=== PATIENT | female | born 1995 | race Two or more races ===

== ENCOUNTER 2018-06-30 06:42 | Emergency (ER) | payer MEDICAID ==
[~2018-06-30] VITALS: Ht 180.3 cm; Wt 73.9 kg
[2018-06-30 07:20] VITALS: BP 111/58
[2018-06-30 07:28] LABS: Urine Bacteria NONE SEEN /hpf (None Seen); Urine Blood Negative /uL (Negative); Urine Mucus FEW (None Seen); Urine Specific Gravity 1.022 (1.001-1.035); Urine WBC 2 /hpf (0 - 5)
[2018-06-30] MEDS: cefTRIAXone SOD 1,000 MG VL IM ONE (07:56)
== END 2018-06-30 08:17 | disposition home or self-care (01) ==
LOC: ER 06:42
DX: J03.90 Acute tonsillitis, unspecified (principal); M54.2 Cervicalgia
CPT/HCPCS: 81001; 96372

== ENCOUNTER 2019-05-14 01:16 | Emergency (ER) | payer MEDICAID ==
[~2019-05-14] VITALS: Ht 175.3 cm; Wt 81.6 kg
[2019-05-14 01:52] LABS: Basophils # (auto) 0 uL; Basophils % (auto) 0.4 % (0.0-2.0); Eosinophils # (auto) 0 uL; Eosinophils % (auto) 0.4 % (0.0-7.0); Hematocrit 42.9 % (36.0-46.0); Hemoglobin 14.4 g/dL (12.2-16.2); Lymphocytes # (auto) 3.4 uL; Lymphocytes % (auto) 32.3 % (10.0-50.0); Mean Corpuscular Hemoglobin 29.9 pg (28.0-32.0); Mean Corpuscular Hgb Conc. 33.5 g/dL (32.0-36.0); Mean Corpuscular Volume 89.3 fL (80.0-100.0); Monocytes % (auto) 9.6 % (0.0-12.0); Neutrophils % (auto) 57.3 % (37.0-80.0); Platelet Count (auto) 192 10^3/uL (140-450); Red Blood Cells 4.81 10^6/uL (4.0-5.20); Red Cell Distribution Width 13.5 % (11.8-14.3); White Blood Cell 10.4 10^3/uL (4.4-10.8)
[2019-05-14 02:13] LABS: Albumin 4.2 g/dL (3.4-5.0); BUN/Creatinine Ratio 15.1; Calcium 8.5 mg/dL (8.5-10.1); Magnesium 2.3 mg/dL (1.6-2.6); Potassium 3.3 mmol/L (3.5-5.1)
[2019-05-14 02:15] LABS: Bilirubin, Total 0.2 mg/dL (0.2-1.0); Total Protein 7.8 g/dL (6.4-8.2)
[2019-05-14 02:24] LABS: Acetaminophen < 2.0 ug/mL (10-30)
[2019-05-14] MEDS ORDERED: SODIUM CHLORIDE 0.9% 1,000 ML IV ONE (03:00)
[2019-05-14] MEDS ORDERED: THIAMINE 100mg/ml INJ (200mg/2ml VIAL) IV ONE (03:15)
[2019-05-14] MEDS ORDERED: LORazepam 2MG/ML-1ML VIAL IV ONE (03:15)
[2019-05-14] MEDS ORDERED: MVI in SODIUM CHLORIDE 0.9% 1,010 ML ONE (03:18)
[2019-05-14 05:00] VITALS: BP 115/60
[2019-05-14] MEDS ORDERED: ONDANSETRON HCL 4 MG/2 ML VIAL ONE (05:10)
[2019-05-14] MEDS ORDERED: ONDANSETRON HCL 4 MG/2 ML VIAL IV ONE (05:15)
[2019-05-14] MEDS ORDERED: FOLIC ACID 1 MG, MULTIPLE VITAMIN 10 ML, MAGNESIUM SULF SDV 50% 8 MEQ, THIAMINE INJ 100... INJ SCH ×5 (12:00)
== END 2019-05-14 05:47 | disposition home or self-care (01) ==
LOC: ER 01:18
DX: G92 Toxic encephalopathy (principal); F10.129 Alcohol abuse with intoxication, unspecified; F41.9 Anxiety disorder, unspecified; R11.2 Nausea with vomiting, unspecified
CPT/HCPCS: 36415; 80053; 80320; 80329; 83735; 85025; 96361; 96374; 96375; 99284; J2405; J3411; J3475

== ENCOUNTER 2023-07-30 21:33 | Emergency (ER) | payer SELFPAY ==
[~2023-07-30] VITALS: Ht 180.3 cm; Wt 100.2 kg
[2023-07-31 00:23] VITALS: BP 104/63; PULSE 82; RESP 17; TEMP 98.2; O2SAT 99
[2023-07-31] MEDS ORDERED: HYDR-4902 PO (00:48)
[2023-07-31] MEDS ORDERED: IBUP-1455 PO (00:48)
[2023-07-31] MEDS: IBUPROFEN 800 MG TAB PO ONE (01:14)
== END 2023-07-31 01:23 | disposition home or self-care (01) ==
LOC: ER 21:33
DX: S82.62XA Displaced fracture of lateral malleolus of left fibula, initial encounter for closed fracture (principal); X50.1XXA Overexertion from prolonged static or awkward postures, initial encounter; Y93.01 Activity, walking, marching and hiking; Y92.832 Beach as the place of occurrence of the external cause; Y99.8 Other external cause status
CPT/HCPCS: 29515; 73610

== ENCOUNTER 2023-08-16 04:42 | Inpatient (IN) | payer OTHER ==
[~2023-08-16] VITALS: Ht 180.3 cm; Wt 106.6 kg
[~2023-08-16 04:42] MED LIST: HYDR-4902 PO; IBUP-1455 PO
[2023-08-16 05:45] VITALS: PULSE 82; RESP 13; O2SAT 99
[2023-08-16] MEDS: MORPHINE SULFATE 4 MG/ML SYR/VIAL IV ONE (06:21)
[2023-08-16] MEDS: SODIUM CHLORIDE 0.9% 1,000 ML IVB ONE (06:21)
[2023-08-16] MEDS: PROCHLORPERAZINE EDISYLATE 5 MG/ML 2ML VIAL IV ONE (06:22)
[2023-08-16] MEDS: PANTOPRAZOLE 40 MG/10 ML VIAL INJ IV ONE (06:22)
[2023-08-16 06:43] LABS: Alanine Aminotransferase 18 U/L (7-40); Albumin 3.9 g/dL (3.2-4.8); Alkaline Phosphatase 68 U/L (46-116); Anion Gap 6 (5-15); Aspartate Aminotransferase 12 U/L (13-40); BUN/Creatinine Ratio 20.6 (10.0-20.0); Bilirubin, Total 0.3 mg/dL (0.2-1.0); Blood Urea Nitrogen 13 mg/dL (9-23); Calcium 9.1 mg/dL (8.7-10.4); Carbon Dioxide 24 mmol/L (20-30); Chloride 108 mmol/L (98-107); Glucose 112 mg/dL (74-106); Lipase 36 U/L (12-53); Potassium 3.8 mmol/L (3.5-5.1); Sodium 138 mmol/L (136-145); Total Protein 6.3 g/dL (5.7-8.2)
[2023-08-16 07:00] LABS: Basophils # (auto) 0 10 ^3/uL (0-0.2); Basophils % (auto) 0.5 % (0.0-2.0); Eosinophils # (auto) 0 10 ^3/uL (0-0.8); Eosinophils % (auto) 0.5 % (0.0-7.0); Hematocrit 40.8 % (36.0-46.0); Hemoglobin 13.6 g/dL (12.2-16.2); Lymphocytes # (auto) 2.2 10 ^3/uL (0.4-5.4); Lymphocytes % (auto) 24.2 % (10.0-50.0); Mean Corpuscular Hemoglobin 28.9 pg (28.0-32.0); Mean Corpuscular Hgb Conc. 33.3 g/dL (32.0-36.0); Mean Corpuscular Volume 86.7 fL (80.0-100.0); Monocytes # (auto) 0.9 10 ^3/uL (0-1.3); Monocytes % (auto) 9.5 % (0.0-12.0); Neutrophils % (auto) 65.3 % (37.0-80.0); Nucleated Red Blood Cells % 0.1 %; Red Blood Cells 4.71 10^6/uL (4.0-5.20); Red Cell Distribution Width 13.8 % (11.8-14.3); White Blood Cell 9.2 10^3/uL (4.4-10.8)
[2023-08-16 08:06] VITALS: PULSE 80; RESP 18; O2SAT 98
[2023-08-16 08:07] LABS: Urine Amorphous Crystal FEW /hpf (None Seen); Urine Bacteria MOD /hpf (None Seen); Urine Blood TRACE /uL (Negative); Urine Clarity Turbid (Clear); Urine Color Light-Yellow (Yellow); Urine Mucus FEW (None Seen); Urine Protein, UAD Negative (Negative); Urine Specific Gravity 1.017 (1.001-1.035); Urine Urobilinogen Normal (Negative); Urine WBC 5 /hpf (0 - 5)
[2023-08-16 08:12] LABS: Amphetamine Screen, Urine Neg (NEGATIVE); Barbiturate Scree,Urine Neg (NEGATIVE); Benzodiazephine Screen, Urine Neg (NEGATIVE); Cannabinoid Screen, Urine Neg (NEGATIVE); Cocaine Screen, Urine Neg (NEGATIVE); Opiate Scree,Urine Neg (NEGATIVE); Phencyclidine Screen, Urine Neg (NEGATIVE)
[2023-08-16] MEDS: KETOROLAC TROMETH 30 MG/ML 1ML VIAL IV ONE (09:00)
[2023-08-16] MEDS: SODIUM CHLORIDE 0.9% 1,000 ML IV SCH ×2 (09:00→16:45)
[2023-08-16] MEDS ORDERED: MORPHINE SULFATE INJ 2 MG/ml SYRG IV PRN (09:00)
[2023-08-16] MEDS: SODIUM CHLORIDE 0.9% 1,000 ML IV ONE (09:21)
[2023-08-16 09:31] LABS: INR 0.95 (0.9-1.15); Prothrombin Time 10.1 sec (9.3-11.8)
[2023-08-16] MEDS: ONDANSETRON HCL 4 MG/2 ML VIAL IV PRN (09:32)
[2023-08-16 09:47] LABS: Triglycerides 78 mg/dL (< 150)
[2023-08-16 09:48] LABS: LDL Cholesterol 106 mg/dL (< 100)
[2023-08-16 09:49] LABS: Cholesterol 161 mg/dL (< 200); HDL Cholesterol 48 mg/dL (40-59)
[2023-08-16] MEDS: PANTOPRAZOLE 40 MG/10 ML VIAL INJ IV SCH (10:24)
[2023-08-16 14:39] VITALS: BP 103/56; PULSE 75; RESP 16; TEMP 98.1; O2SAT 100
[2023-08-16 15:30] VITALS: BP 110/49; PULSE 77; RESP 17; TEMP 98; O2SAT 98
[2023-08-16] MEDS: ACETAMINOPHEN/CODEINE#3 (300/30mg) TAB PO PRN (17:09)
[2023-08-16] MEDS: LACTATED RINGER'S 1,000 ML IV ONE (17:09)
[2023-08-16] MEDS: PIPERACILLIN-TAZOB 3.375GM 100 ML IV SCH (18:26)
[2023-08-16 20:00] VITALS: BP 117/66; PULSE 96; RESP 18; RESP 19; TEMP 99.2; O2SAT 99
[2023-08-16 21:00] VITALS: BP 117/66; PULSE 96; RESP 18; TEMP 99.2; O2SAT 99
[2023-08-17] VITALS (8 sets, daily range): BP systolic 101–120; BP diastolic 50–65; PULSE 67–85; RESP 16–20; TEMP 97.6–98.5; O2SAT 95–100
[2023-08-17 07:09] LABS: Basophils # (auto) 0 10 ^3/uL (0-0.2); Basophils % (auto) 0.2 % (0.0-2.0); Eosinophils # (auto) 0 10 ^3/uL (0-0.8); Eosinophils % (auto) 0.3 % (0.0-7.0); Hemoglobin 13.1 g/dL (12.2-16.2); Lymphocytes # (auto) 2.3 10 ^3/uL (0.4-5.4); Lymphocytes % (auto) 19.7 % (10.0-50.0); Mean Corpuscular Hemoglobin 29.3 pg (28.0-32.0); Mean Corpuscular Hgb Conc. 33.7 g/dL (32.0-36.0); Mean Corpuscular Volume 87.1 fL (80.0-100.0); Monocytes # (auto) 1.2 10 ^3/uL (0-1.3); Monocytes % (auto) 10.1 % (0.0-12.0); Neutrophils # (auto) 8.3 10 ^3/uL (1.6-8.6); Neutrophils % (auto) 69.7 % (37.0-80.0); Red Blood Cells 4.48 10^6/uL (4.0-5.20); Red Cell Distribution Width 13.7 % (11.8-14.3); White Blood Cell 11.8 10^3/uL (4.4-10.8)
[2023-08-17 07:28] LABS: Alanine Aminotransferase 12 U/L (7-40); Alkaline Phosphatase 52 U/L (46-116); Anion Gap 6 (5-15); Calcium 8.5 mg/dL (8.5-10.1); Carbon Dioxide 25 mmol/L (20-30); Chloride 108 mmol/L (98-107); Glucose 110 mg/dL (74-106); Potassium 3.1 mmol/L (3.5-5.1); Sodium 139 mmol/L (136-145)
[2023-08-17 07:29] LABS: Albumin 3.6 g/dL (3.2-4.8); Aspartate Aminotransferase 11 U/L (13-40); BUN/Creatinine Ratio 8.2 (10.0-20.0); Bilirubin, Total 0.8 mg/dL (0.2-1.0); Blood Urea Nitrogen < 5 mg/dL (9-23); Total Protein 5.8 g/dL (5.7-8.2)
[2023-08-17] MEDS: LIDOCAINE W/ EPINEPHRINE 1% 20ML VIAL ONE (08:17)
[2023-08-17] MEDS ORDERED: fentaNYL CITRATE 100 MCG/2 ML VL ONE (08:46)
[2023-08-17] MEDS ORDERED: MEPERIDINE HCL (50 MG/ML) 1 ML VIAL ONE (08:46)
[2023-08-17] MEDS ORDERED: MIDAZOLAM HCL 2MG/2ML 2ml VIAL (1mg/ml) ONE (08:46)
[2023-08-17] MEDS: LIDOCAINE 2% JELLY 11ml (GLYDO) ONE (09:09)
[2023-08-17] MEDS ORDERED: ONDANSETRON HCL 4 MG/2 ML VIAL ONE (09:32)
[2023-08-17] MEDS ORDERED: DexAMETHasone SOD PHOS 10MG/1ML VIAL INJ ONE (09:32)
[2023-08-17] MEDS ORDERED: PROPOFOL 10 MG/ML 20 ML IV ONE (09:32)
[2023-08-17] MEDS ORDERED: SUGAMMADEX 200mg/2ml Vial (100MG/ML) IV ONE (09:59)
[2023-08-17] MEDS ORDERED: ePHEDrine SULFATE 50 MG/ML AMP IV PRN (10:30)
[2023-08-17] MEDS ORDERED: LABETALOL HCL 5 MG/ML 4ML SYRINGE IV PRN (10:30)
[2023-08-17] MEDS ORDERED: MIDAZOLAM HCL 2MG/2ML 2ml VIAL (1mg/ml) IV PRN (10:30)
[2023-08-17] MEDS ORDERED: KETOROLAC TROMETH 30 MG/ML 1ML VIAL IV ONE (10:30)
[2023-08-17] MEDS ORDERED: HYDROmorphone HCL 2 MG/ML VL/or syr IV PRN (10:30)
[2023-08-17] MEDS ORDERED: ONDANSETRON HCL 4 MG/2 ML VIAL IV ONE (10:30)
[2023-08-17] MEDS ORDERED: MORPHINE SULFATE 4 MG/ML SYR/VIAL IV PRN (10:30)
[2023-08-17] MEDS: POTASSIUM CHL 20 Meq TABLET PO ONE (14:40)
[2023-08-18 01:00] VITALS: BP 111/53; PULSE 63; RESP 22; TEMP 97.9; O2SAT 98
[2023-08-18 05:00] VITALS: BP 115/70; PULSE 61; RESP 22; TEMP 98.3; O2SAT 99
[2023-08-18 07:00] LABS: Basophils # (auto) 0 10 ^3/uL (0-0.2); Basophils % (auto) 0.1 % (0.0-2.0); Eosinophils # (auto) 0 10 ^3/uL (0-0.8); Hematocrit 38.7 % (36.0-46.0); Hemoglobin 12.7 g/dL (12.2-16.2); Lymphocytes # (auto) 1.5 10 ^3/uL (0.4-5.4); Lymphocytes % (auto) 10.4 % (10.0-50.0); Mean Corpuscular Hemoglobin 28.6 pg (28.0-32.0); Mean Corpuscular Hgb Conc. 32.9 g/dL (32.0-36.0); Mean Corpuscular Volume 86.8 fL (80.0-100.0); Monocytes # (auto) 1.2 10 ^3/uL (0-1.3); Monocytes % (auto) 8.5 % (0.0-12.0); Neutrophils # (auto) 11.8 10 ^3/uL (1.6-8.6); Red Blood Cells 4.46 10^6/uL (4.0-5.20); Red Cell Distribution Width 13.4 % (11.8-14.3); White Blood Cell 14.6 10^3/uL (4.4-10.8)
[2023-08-18 07:20] LABS: Alanine Aminotransferase 28 U/L (7-40); Alkaline Phosphatase 52 U/L (46-116); Anion Gap 6 (5-15); Aspartate Aminotransferase 16 U/L (13-40); Bilirubin, Total 0.7 mg/dL (0.2-1.0); Calcium 9.2 mg/dL (8.5-10.1); Carbon Dioxide 26 mmol/L (20-30); Chloride 106 mmol/L (98-107); Glucose 118 mg/dL (74-106); Potassium 3.6 mmol/L (3.5-5.1); Sodium 138 mmol/L (136-145); Total Protein 6.3 g/dL (5.7-8.2)
[2023-08-18 07:29] LABS: BUN/Creatinine Ratio 8.1 (10.0-20.0); Blood Urea Nitrogen < 5 mg/dL (9-23)
[2023-08-18] MEDS: ACETAMINOPHEN 325 MG TAB PO PRN (08:20)
[2023-08-18 08:45] VITALS: BP 108/58; PULSE 62; RESP 18; TEMP 98.4; O2SAT 99
[2023-08-18 12:45] VITALS: BP 90/58; PULSE 81; RESP 18; TEMP 98.7; O2SAT 99
[2023-08-18 16:35] VITALS: BP 96/63; PULSE 71; RESP 17; TEMP 97.8; O2SAT 99
[2023-08-18 21:00] VITALS: BP 106/52; PULSE 71; RESP 22; TEMP 97.4; O2SAT 99
[2023-08-19 01:00] VITALS: BP 106/62; PULSE 78; RESP 22; TEMP 97.5; O2SAT 98
[2023-08-19 05:00] VITALS: BP 109/60; PULSE 58; RESP 22; TEMP 98.4; O2SAT 99
[2023-08-19] MEDS: PANTOPRAZOLE 40 MG TAB PO SCH (05:49)
[2023-08-19 06:50] LABS: Basophils # (auto) 0 10 ^3/uL (0-0.2); Basophils % (auto) 0.3 % (0.0-2.0); Eosinophils # (auto) 0 10 ^3/uL (0-0.8); Eosinophils % (auto) 0.3 % (0.0-7.0); Hematocrit 36.7 % (36.0-46.0); Hemoglobin 12.5 g/dL (12.2-16.2); Lymphocytes # (auto) 3.3 10 ^3/uL (0.4-5.4); Lymphocytes % (auto) 38.2 % (10.0-50.0); Mean Corpuscular Hemoglobin 29.6 pg (28.0-32.0); Mean Corpuscular Hgb Conc. 34.1 g/dL (32.0-36.0); Monocytes # (auto) 0.8 10 ^3/uL (0-1.3); Monocytes % (auto) 9.2 % (0.0-12.0); Neutrophils # (auto) 4.5 10 ^3/uL (1.6-8.6); Nucleated Red Blood Cells % 0.1 %; Red Blood Cells 4.21 10^6/uL (4.0-5.20); Red Cell Distribution Width 13.8 % (11.8-14.3); White Blood Cell 8.8 10^3/uL (4.4-10.8)
[2023-08-19 07:00] LABS: Chloride 108 mmol/L (98-107); Potassium 3.7 mmol/L (3.5-5.1); Sodium 139 mmol/L (136-145)
[2023-08-19 07:01] LABS: Anion Gap 5 (5-15); Carbon Dioxide 26 mmol/L (20-30)
[2023-08-19 07:02] LABS: Calcium 8.6 mg/dL (8.5-10.1)
[2023-08-19 07:06] LABS: Glucose 100 mg/dL (74-106)
[2023-08-19 07:07] LABS: BUN/Creatinine Ratio 7.4 (10.0-20.0); Blood Urea Nitrogen 5 mg/dL (9-23)
[2023-08-19] MEDS ORDERED: AUG875T PO (08:27)
[2023-08-19 08:45] VITALS: BP 93/57; PULSE 62; RESP 18; TEMP 98.4; O2SAT 99
[2023-08-19] MEDS: AMOXICILLIN/CLAVUL 875 MG TAB PO SCH (10:30)
[2023-08-19 12:00] VITALS: BP 94/57; PULSE 64; RESP 18; TEMP 98.3; O2SAT 99
== END 2023-08-19 13:30 | disposition home or self-care (01) | DRG 263 ==
LOC: ER 04:42 → OVERFLOW 08:58 → EAST 13:44
PROVIDERS: ADMIT Internal Medicine; ATTEND Emergency Medicine
PROC: 0FT44ZZ Resection of Gallbladder, Percutaneous Endoscopic Approach (ICD-10-PCS; principal; 2023-08-17 09:05)
DX: K80.00 Calculus of gallbladder with acute cholecystitis without obstruction (principal); R65.10 Systemic inflammatory response syndrome (SIRS) of non-infectious origin without acute organ dysfunction; K76.0 Fatty (change of) liver, not elsewhere classified; E87.6 Hypokalemia; E78.5 Hyperlipidemia, unspecified; E66.01 Morbid (severe) obesity due to excess calories; N83.292 Other ovarian cyst, left side; F17.210 Nicotine dependence, cigarettes, uncomplicated; Z79.891 Long term (current) use of opiate analgesic; Z79.899 Other long term (current) drug therapy; Z68.32 Body mass index [BMI] 32.0-32.9, adult
CPT/HCPCS: 36415; 71045; 74177; 76705; 80048; 80053; 80061; 80307; 81001; 83036; 83690; 83735; 84443; 84702; 85025; 85610; 86850; 86900; 86901; C9113; G0378; J1100; J1885; J2250; J2405; J2543; J2704

== ENCOUNTER 2023-09-10 10:45 | Emergency (ER) | payer OTHER ==
[~2023-09-10] VITALS: Ht 180.3 cm; Wt 100.0 kg
[~2023-09-10 10:45] MED LIST changes: +AUG875T PO
[2023-09-10 11:40] VITALS: PULSE 104; RESP 18; O2SAT 99
[2023-09-10 11:44] LABS: Basophils # (auto) 0 10 ^3/uL (0-0.2); Basophils % (auto) 0.3 % (0.0-2.0); Eosinophils # (auto) 0 10 ^3/uL (0-0.8); Eosinophils % (auto) 0.3 % (0.0-7.0); Hematocrit 44.6 % (36.0-46.0); Lymphocytes # (auto) 1.2 10 ^3/uL (0.4-5.4); Lymphocytes % (auto) 17.1 % (10.0-50.0); Mean Corpuscular Hgb Conc. 33.7 g/dL (32.0-36.0); Monocytes # (auto) 1.1 10 ^3/uL (0-1.3); Monocytes % (auto) 15.1 % (0.0-12.0); Neutrophils # (auto) 4.8 10 ^3/uL (1.6-8.6); Neutrophils % (auto) 67.2 % (37.0-80.0); Nucleated Red Blood Cells % 0.2 %; Red Blood Cells 5.18 10^6/uL (4.0-5.20); Red Cell Distribution Width 13.6 % (11.8-14.3); White Blood Cell 7.2 10^3/uL (4.4-10.8)
[2023-09-10] MEDS: MORPHINE SULFATE 4 MG/ML SYR/VIAL IV ONE (11:48)
[2023-09-10] MEDS: PANTOPRAZOLE 40 MG/10 ML VIAL INJ IV ONE (11:48)
[2023-09-10] MEDS: PROCHLORPERAZINE EDISYLATE 5 MG/ML 2ML VIAL IV ONE (11:48)
[2023-09-10] MEDS: IOHEXOL 300 MG/ML 100ML BOTTLE IJ ONE (11:49)
[2023-09-10] MEDS: SODIUM CHLORIDE 0.9% 1,000 ML IVB ONE (11:49)
[2023-09-10 12:02] LABS: Alanine Aminotransferase 77 U/L (7-40); Albumin 4.4 g/dL (3.2-4.8); Alkaline Phosphatase 89 U/L (46-116); Anion Gap 8 (5-15); Aspartate Aminotransferase 94 U/L (13-40); Bilirubin, Total 0.7 mg/dL (0.2-1.0); Calcium 9.6 mg/dL (8.7-10.4); Carbon Dioxide 21 mmol/L (20-30); Chloride 107 mmol/L (98-107); Glucose 121 mg/dL (74-106); Lipase 39 U/L (12-53); Potassium 3.8 mmol/L (3.5-5.1); Sodium 136 mmol/L (136-145); Total Protein 7.2 g/dL (5.7-8.2)
[2023-09-10 12:15] LABS: BUN/Creatinine Ratio 8.1 (10.0-20.0); Blood Urea Nitrogen < 5 mg/dL (9-23)
[2023-09-10] MEDS ORDERED: PANT40TA2 PO (15:40)
[2023-09-10] MEDS ORDERED: ZOFR4T PO (15:40)
[2023-09-10 16:29] VITALS: BP 107/67; PULSE 87; RESP 18; TEMP 97.8; O2SAT 100
== END 2023-09-10 16:31 | disposition admitted as inpatient to this hospital (09) ==
LOC: ER 11:08
DX: R10.13 Epigastric pain (principal); R11.2 Nausea with vomiting, unspecified; Z90.49 Acquired absence of other specified parts of digestive tract; Z79.899 Other long term (current) drug therapy
CPT/HCPCS: 36415; 74177; 80053; 83690; 85025; 96361; 96374; 96375; 99285; C9113; J0780; J2270; J7030; Q9967

== ENCOUNTER 2023-09-10 23:36 | Inpatient (IN) | payer OTHER ==
[~2023-09-10] VITALS: Ht 180.3 cm; Wt 97.9 kg
[~2023-09-10 23:36] MED LIST changes: +PANT40TA2 PO; +ZOFR4T PO
[2023-09-10] MEDS: ONDANSETRON HCL 4 MG/2 ML VIAL ONE (23:54)
[2023-09-10] MEDS: ONDANSETRON HCL 4 MG/2 ML VIAL IM ONE (23:54)
[2023-09-11] VITALS (7 sets, daily range): BP systolic 102–123; BP diastolic 59–70; PULSE 54–98; RESP 12–18; TEMP 97.6–98.1; O2SAT 96–100
[2023-09-11 03:35] LABS: Basophils # (auto) 0 10 ^3/uL (0-0.2); Basophils % (auto) 0.2 % (0.0-2.0); Eosinophils # (auto) 0 10 ^3/uL (0-0.8); Eosinophils % (auto) 0.2 % (0.0-7.0); Hematocrit 42.8 % (36.0-46.0); Hemoglobin 14.6 g/dL (12.2-16.2); Lymphocytes # (auto) 1.1 10 ^3/uL (0.4-5.4); Lymphocytes % (auto) 16.4 % (10.0-50.0); Mean Corpuscular Hemoglobin 29.1 pg (28.0-32.0); Mean Corpuscular Hgb Conc. 34.1 g/dL (32.0-36.0); Mean Corpuscular Volume 85.3 fL (80.0-100.0); Monocytes # (auto) 0.7 10 ^3/uL (0-1.3); Monocytes % (auto) 10.6 % (0.0-12.0); Neutrophils # (auto) 4.9 10 ^3/uL (1.6-8.6); Neutrophils % (auto) 72.6 % (37.0-80.0); Nucleated Red Blood Cells % 0.2 %; Red Blood Cells 5.02 10^6/uL (4.0-5.20); Red Cell Distribution Width 13.4 % (11.8-14.3); White Blood Cell 6.8 10^3/uL (4.4-10.8)
[2023-09-11 03:54] LABS: Alanine Aminotransferase 819 U/L (7-40); Albumin 4.3 g/dL (3.2-4.8); Alkaline Phosphatase 188 U/L (46-116); Anion Gap 8 (5-15); Aspartate Aminotransferase 729 U/L (13-40); BUN/Creatinine Ratio 9.7 (10.0-20.0); Bilirubin, Total 1.9 mg/dL (0.2-1.0); Blood Urea Nitrogen 6 mg/dL (9-23); Calcium 9.7 mg/dL (8.7-10.4); Carbon Dioxide 23 mmol/L (20-30); Chloride 106 mmol/L (98-107); Glucose 116 mg/dL (74-106); Lipase 39 U/L (12-53); Sodium 137 mmol/L (136-145)
[2023-09-11] MEDS ORDERED: NITROGLYCERIN 0.4 MG SL TAB SL PRN (05:30)
[2023-09-11] MEDS ORDERED: MORPHINE SULFATE INJ 2 MG/ml SYRG IV PRN (05:30)
[2023-09-11] MEDS ORDERED: HYDROcodone-ACET 5/325MG TAB PO PRN (05:30)
[2023-09-11] MEDS ORDERED: DOCUSATE SOD 100 MG CAP PO PRN (05:30)
[2023-09-11] MEDS ORDERED: ACETAMINOPHEN 325 MG TAB PO PRN (05:30)
[2023-09-11] MEDS: PANTOPRAZOLE 40 MG/10 ML VIAL INJ IV ONE (05:49)
[2023-09-11] MEDS: MORPHINE SULFATE 4 MG/ML SYR/VIAL IV ONE (05:49)
[2023-09-11] MEDS: SODIUM CHLORIDE 0.9% 1,000 ML IV ONE (05:49)
[2023-09-11] MEDS: ONDANSETRON HCL 4 MG/2 ML VIAL IV ONE (05:49)
[2023-09-11 06:28] LABS: Urine Bacteria None Seen /hpf (None Seen)
[2023-09-11 06:43] LABS: Urine Blood 3+ /uL (Negative); Urine Clarity Turbid (Clear); Urine Color Dark-Yellow (Yellow); Urine Mucus FEW (None Seen); Urine Protein, UAD TRACE (Negative); Urine Specific Gravity 1.028 (1.001-1.035); Urine Urobilinogen 4 mg/dL (Negative); Urine WBC 6 /hpf (0 - 5)
[2023-09-11] MEDS: SODIUM CHLORIDE 0.9% 1,000 ML IV SCH (06:45)
[2023-09-11] MEDS: PANTOPRAZOLE 40 MG/10 ML VIAL INJ IV SCH (11:57)
[2023-09-11 14:09] LABS: Hepatitis B Surface Antigen Negative (Negative)
[2023-09-11] MEDS: metroNIDAZOLE 500 MG TAB PO SCH (14:09)
[2023-09-11 14:31] LABS: Hepatitis C Antibody Negative (Negative)
[2023-09-11] MEDS: MORPHINE SULFATE INJ 2 MG/ml SYRG IV PRN (16:49)
[2023-09-11] MEDS: PIPERACILLIN-TAZOB 3.375GM 100 ML IV SCH (21:44)
[2023-09-12] VITALS (8 sets, daily range): BP systolic 95–109; BP diastolic 50–66; PULSE 52–67; RESP 16–17; TEMP 98.1–98.9; O2SAT 97–100
[2023-09-12 05:41] LABS: Basophils # (auto) 0 10 ^3/uL (0-0.2); Basophils % (auto) 0.5 % (0.0-2.0); Eosinophils # (auto) 0.1 10 ^3/uL (0-0.8); Eosinophils % (auto) 1.3 % (0.0-7.0); Hematocrit 40.9 % (36.0-46.0); Hemoglobin 13.8 g/dL (12.2-16.2); Lymphocytes # (auto) 1.9 10 ^3/uL (0.4-5.4); Lymphocytes % (auto) 34.8 % (10.0-50.0); Mean Corpuscular Hemoglobin 28.8 pg (28.0-32.0); Mean Corpuscular Hgb Conc. 33.6 g/dL (32.0-36.0); Mean Corpuscular Volume 85.8 fL (80.0-100.0); Monocytes # (auto) 0.6 10 ^3/uL (0-1.3); Neutrophils # (auto) 2.8 10 ^3/uL (1.6-8.6); Neutrophils % (auto) 52.4 % (37.0-80.0); Nucleated Red Blood Cells % 0.1 %; Red Blood Cells 4.77 10^6/uL (4.0-5.20); Red Cell Distribution Width 13.7 % (11.8-14.3); White Blood Cell 5.4 10^3/uL (4.4-10.8)
[2023-09-12 06:24] LABS: Alanine Aminotransferase 581 U/L (7-40); Albumin 3.8 g/dL (3.2-4.8); Alkaline Phosphatase 183 U/L (46-116); Anion Gap 8 (5-15); Aspartate Aminotransferase 271 U/L (13-40); Carbon Dioxide 22 mmol/L (20-30); Chloride 108 mmol/L (98-107); Glucose 97 mg/dL (74-106); Potassium 3.9 mmol/L (3.5-5.1); Sodium 138 mmol/L (136-145); Total Protein 6.1 g/dL (5.7-8.2)
[2023-09-12 06:25] LABS: BUN/Creatinine Ratio 8.9 (10.0-20.0); Blood Urea Nitrogen < 5 mg/dL (9-23)
[2023-09-12] MEDS ORDERED: LACTULOSE 20Gm/30ML SOLN PO PRN (14:15)
[2023-09-12] MEDS: DOCUSATE SOD 100 MG CAP PO SCH (21:25)
[2023-09-13] VITALS (8 sets, daily range): BP systolic 103–116; BP diastolic 55–74; PULSE 50–79; RESP 15–20; TEMP 97.6–98.3; O2SAT 95–100
[2023-09-13 06:54] LABS: Alanine Aminotransferase 462 U/L (7-40); Alkaline Phosphatase 187 U/L (46-116); Anion Gap 7 (5-15); Aspartate Aminotransferase 106 U/L (13-40); Calcium 9.1 mg/dL (8.5-10.1); Carbon Dioxide 23 mmol/L (20-30); Chloride 107 mmol/L (98-107); Glucose 90 mg/dL (74-106); Potassium 4.5 mmol/L (3.5-5.1); Sodium 137 mmol/L (136-145)
[2023-09-13 06:55] LABS: Albumin 3.8 g/dL (3.2-4.8); Bilirubin, Total 1.6 mg/dL (0.2-1.0)
[2023-09-13 06:59] LABS: BUN/Creatinine Ratio 6.5 (10.0-20.0); Blood Urea Nitrogen < 5 mg/dL (9-23)
[2023-09-13] MEDS: ONDANSETRON HCL 4 MG/2 ML VIAL IV PRN (18:54)
[2023-09-14] VITALS (8 sets, daily range): BP systolic 104–120; BP diastolic 57–71; PULSE 50–62; RESP 15–19; TEMP 97.2–98.3; O2SAT 98–100
[2023-09-14 06:42] LABS: Alanine Aminotransferase 356 U/L (7-40); Albumin 3.8 g/dL (3.2-4.8); Alkaline Phosphatase 182 U/L (46-116); Anion Gap 5 (5-15); Aspartate Aminotransferase 71 U/L (13-40); Calcium 9.1 mg/dL (8.5-10.1); Carbon Dioxide 25 mmol/L (20-30); Chloride 106 mmol/L (98-107); Glucose 83 mg/dL (74-106); Potassium 3.6 mmol/L (3.5-5.1); Sodium 136 mmol/L (136-145)
[2023-09-14 06:43] LABS: Total Protein 6.3 g/dL (5.7-8.2)
[2023-09-14 06:45] LABS: BUN/Creatinine Ratio 7.4 (10.0-20.0); Blood Urea Nitrogen < 5 mg/dL (9-23)
[2023-09-14] MEDS: SODIUM CHLORIDE 0.9% 500 ML IV ONE (15:46)
[2023-09-15 01:00] VITALS: BP 101/62; PULSE 63; RESP 16; TEMP 97.1; O2SAT 99
[2023-09-15 05:00] VITALS: BP_SYST 102; BP_SYST 123; BP_DIAS 60; BP_DIAS 88; PULSE 52; PULSE 75; RESP 16; RESP 18; TEMP 97.3; TEMP 98.4; O2SAT 95; O2SAT 98
[2023-09-15 07:28] LABS: Alanine Aminotransferase 375 U/L (7-40); Albumin 3.8 g/dL (3.2-4.8); Alkaline Phosphatase 188 U/L (46-116); Anion Gap 7 (5-15); Aspartate Aminotransferase 155 U/L (13-40); Calcium 9.4 mg/dL (8.5-10.1); Carbon Dioxide 24 mmol/L (20-30); Chloride 106 mmol/L (98-107); Glucose 98 mg/dL (74-106); Potassium 3.7 mmol/L (3.5-5.1); Sodium 137 mmol/L (136-145)
[2023-09-15 07:29] LABS: Bilirubin, Total 3.7 mg/dL (0.2-1.0); Total Protein 6.4 g/dL (5.7-8.2)
[2023-09-15 07:38] LABS: BUN/Creatinine Ratio 7.2 (10.0-20.0); Blood Urea Nitrogen < 5 mg/dL (9-23)
[2023-09-15 08:00] VITALS: PULSE 56; RESP 19
[2023-09-15 09:30] VITALS: BP 102/57; PULSE 56; RESP 19; TEMP 98; O2SAT 99
[2023-09-15 13:00] VITALS: BP 108/64; PULSE 64; RESP 17; TEMP 98.3; O2SAT 99
[2023-09-15 21:00] VITALS: BP 112/65; PULSE 63; RESP 22; TEMP 98.3; O2SAT 98
[2023-09-16 01:00] VITALS: BP 109/60; PULSE 61; RESP 22; TEMP 98.2; O2SAT 97
[2023-09-16 05:00] VITALS: BP 108/63; PULSE 58; RESP 22; TEMP 97.9; O2SAT 100
[2023-09-16 09:00] VITALS: BP 99/61; PULSE 52; RESP 14; TEMP 97.7; O2SAT 95
== END 2023-09-16 09:00 | disposition short-term general hospital (02) ==
LOC: ER 23:36 → OVERFLOW 09-11 05:35 → WEST WING 09-11 10:50
PROVIDERS: ADMIT Nurse Practitioner Family; ATTEND Internal Medicine
DX: K80.50 Calculus of bile duct without cholangitis or cholecystitis without obstruction (principal); E66.9 Obesity, unspecified; K52.9 Noninfective gastroenteritis and colitis, unspecified; R79.89 Other specified abnormal findings of blood chemistry; Z90.49 Acquired absence of other specified parts of digestive tract; Z68.30 Body mass index [BMI] 30.0-30.9, adult
CPT/HCPCS: 36415; 74181; 76705; 78226; 80053; 81001; 83690; 85025; 86803; 87340; 96361; 96372; 96374; 96375; C9113; G0378; J2405; J2543

== ENCOUNTER 2023-09-17 21:50 | Inpatient (IN) | payer OTHER ==
[~2023-09-17] VITALS: Ht 180.3 cm; Wt 97.3 kg
[2023-09-17 22:29] LABS: Basophils # (auto) 0 10 ^3/uL (0-0.2); Basophils % (auto) 0.3 % (0.0-2.0); Eosinophils # (auto) 0 10 ^3/uL (0-0.8); Hematocrit 46.3 % (36.0-46.0); Hemoglobin 15.3 g/dL (12.2-16.2); Lymphocytes # (auto) 0.8 10 ^3/uL (0.4-5.4); Lymphocytes % (auto) 5.6 % (10.0-50.0); Mean Corpuscular Hemoglobin 28.5 pg (28.0-32.0); Mean Corpuscular Volume 86.3 fL (80.0-100.0); Monocytes # (auto) 0.8 10 ^3/uL (0-1.3); Monocytes % (auto) 5.5 % (0.0-12.0); Neutrophils # (auto) 12.7 10 ^3/uL (1.6-8.6); Neutrophils % (auto) 88.6 % (37.0-80.0); Red Blood Cells 5.37 10^6/uL (4.0-5.20); White Blood Cell 14.4 10^3/uL (4.4-10.8)
[2023-09-17] MEDS: KETOROLAC TROMETH 30 MG/ML 1ML VIAL IM ONE (22:38)
[2023-09-17 22:45] LABS: Alanine Aminotransferase 365 U/L (7-40); Alkaline Phosphatase 201 U/L (46-116); Anion Gap 8 (5-15); Aspartate Aminotransferase 105 U/L (13-40); BUN/Creatinine Ratio 9.9 (10.0-20.0); Blood Urea Nitrogen 7 mg/dL (9-23); Calcium 9.9 mg/dL (8.7-10.4); Carbon Dioxide 19 mmol/L (20-30); Chloride 107 mmol/L (98-107); Glucose 197 mg/dL (74-106); Potassium 4.1 mmol/L (3.5-5.1); Sodium 134 mmol/L (136-145)
[2023-09-17 22:46] LABS: Albumin 4.1 g/dL (3.2-4.8); Total Protein 7.1 g/dL (5.7-8.2)
[2023-09-17 22:53] LABS: Lipase 3446 U/L (12-53)
[2023-09-17 23:28] VITALS: PULSE 72; RESP 16
[2023-09-17] MEDS ORDERED: SODIUM CHLORIDE 0.9% 1,000 ML IV ONE (23:45)
[2023-09-18] VITALS (9 sets, daily range): BP systolic 94–115; BP diastolic 49–85; PULSE 55–80; RESP 16–18; TEMP 97.3–98.1; O2SAT 96–100
[2023-09-18] MEDS ORDERED: IBUPROFEN 600 MG TAB PO PRN
[2023-09-18] MEDS ORDERED: DEXTROSE (50%) 50ML SYRG IV PRN
[2023-09-18] MEDS ORDERED: NITROGLYCERIN 0.4 MG SL TAB SL PRN
[2023-09-18] MEDS ORDERED: MORPHINE SULFATE INJ 2 MG/ml SYRG IV PRN
[2023-09-18] MEDS: SODIUM CHLORIDE 0.9% 1,000 ML IV SCH (00:18)
[2023-09-18] MEDS: ONDANSETRON HCL 4 MG/2 ML VIAL IV ONE (00:19)
[2023-09-18] MEDS: MORPHINE SULFATE INJ 2 MG/ml SYRG IV PRN (00:19)
[2023-09-18] MEDS: cefTRIAXone 1GM/50ML D5W 50 ML IV ONE (00:20)
[2023-09-18] MEDS: MORPHINE SULFATE 4 MG/ML SYR/VIAL IV ONE (00:25)
[2023-09-18] MEDS: metroNIDAZOLE 500MG/100ML 100 ML IV SCH (02:45)
[2023-09-18] MEDS: InsuLIN REG 1unit/0.01ml Soln (100units/ml) SC SCH (05:33)
[2023-09-18] MEDS: ACCU-CHEK COMFORT CURVE STRIP VI SCH (05:34)
[2023-09-18 06:53] LABS: Basophils # (auto) 0 10 ^3/uL (0-0.2); Basophils % (auto) 0.1 % (0.0-2.0); Eosinophils # (auto) 0 10 ^3/uL (0-0.8); Eosinophils % (auto) 0.2 % (0.0-7.0); Hemoglobin 13.6 g/dL (12.2-16.2); Lymphocytes # (auto) 1.6 10 ^3/uL (0.4-5.4); Lymphocytes % (auto) 13.7 % (10.0-50.0); Mean Corpuscular Hemoglobin 28.7 pg (28.0-32.0); Mean Corpuscular Hgb Conc. 33.2 g/dL (32.0-36.0); Mean Corpuscular Volume 86.5 fL (80.0-100.0); Monocytes % (auto) 8.2 % (0.0-12.0); Neutrophils # (auto) 9.1 10 ^3/uL (1.6-8.6); Neutrophils % (auto) 77.8 % (37.0-80.0); Red Blood Cells 4.74 10^6/uL (4.0-5.20); White Blood Cell 11.6 10^3/uL (4.4-10.8)
[2023-09-18 07:32] LABS: Alanine Aminotransferase 293 U/L (7-40); Alkaline Phosphatase 173 U/L (46-116); Anion Gap 9 (5-15); BUN/Creatinine Ratio 15.4 (10.0-20.0); Blood Urea Nitrogen 8 mg/dL (9-23); Carbon Dioxide 22 mmol/L (20-30); Chloride 107 mmol/L (98-107); Glucose 87 mg/dL (74-106); Potassium 3.5 mmol/L (3.5-5.1); Sodium 138 mmol/L (136-145)
[2023-09-18 07:33] LABS: Aspartate Aminotransferase 72 U/L (13-40)
[2023-09-18 07:34] LABS: Albumin 3.6 g/dL (3.2-4.8); Bilirubin, Total 1.6 mg/dL (0.2-1.0); Total Protein 6.1 g/dL (5.7-8.2)
[2023-09-18] MEDS: PANTOPRAZOLE 40 MG/10 ML VIAL INJ IV SCH (08:56)
[2023-09-18] MEDS: HYDROcodone-ACET 5/325MG TAB PO PRN (11:16)
[2023-09-18 14:33] LABS: Amylase 1426 U/L (30-118)
[2023-09-18 14:40] LABS: Lipase 1160 U/L (12-53)
[2023-09-18] MEDS: cefTRIAXone 1GM/50ML D5W 50 ML IV SCH (20:54)
[2023-09-19] VITALS (8 sets, daily range): BP systolic 93–112; BP diastolic 56–63; PULSE 59–81; RESP 14–18; TEMP 98.2–99.2; O2SAT 97–99
[2023-09-19 06:33] LABS: Alanine Aminotransferase 234 U/L (7-40); Alkaline Phosphatase 151 U/L (46-116); Anion Gap 7 (5-15); Calcium 8.8 mg/dL (8.5-10.1); Carbon Dioxide 24 mmol/L (20-30); Chloride 107 mmol/L (98-107); Glucose 82 mg/dL (74-106); Potassium 3.4 mmol/L (3.5-5.1); Sodium 138 mmol/L (136-145)
[2023-09-19 06:34] LABS: Albumin 3.5 g/dL (3.2-4.8); Amylase 410 U/L (30-118); Aspartate Aminotransferase 59 U/L (13-40)
[2023-09-19 06:35] LABS: Bilirubin, Total 1.2 mg/dL (0.2-1.0); Total Protein 5.8 g/dL (5.7-8.2)
[2023-09-19 06:37] LABS: BUN/Creatinine Ratio 9.3 (10.0-20.0); Blood Urea Nitrogen < 5 mg/dL (9-23)
[2023-09-19 06:59] LABS: Lipase 169 U/L (12-53)
[2023-09-19] MEDS: ONDANSETRON HCL 4 MG/2 ML VIAL IV PRN (10:58)
[2023-09-20] VITALS (7 sets, daily range): BP systolic 91–110; BP diastolic 50–66; PULSE 59–89; RESP 16–18; TEMP 97.8–98.6; O2SAT 96–100
[2023-09-20 06:39] LABS: Amylase 252 U/L (30-118)
[2023-09-20 06:40] LABS: Lipase 86 U/L (12-53)
[2023-09-20] MEDS: LACTULOSE 20Gm/30ML SOLN PO PRN (16:23)
[2023-09-21 01:00] VITALS: BP 104/61; PULSE 63; RESP 18; TEMP 98; O2SAT 100
[2023-09-21 05:00] VITALS: BP 116/70; PULSE 65; RESP 18; TEMP 98; O2SAT 100
[2023-09-21 08:00] VITALS: PULSE 72; RESP 20; O2SAT 97
[2023-09-21 09:00] VITALS: BP 107/58; PULSE 72; RESP 20; TEMP 98.1; O2SAT 97
[2023-09-21 10:53] VITALS: BP 107/58; PULSE 72; RESP 20; TEMP 98.1; O2SAT 97
== END 2023-09-21 13:45 | disposition home or self-care (01) | DRG 252 ==
LOC: ER 21:50 → EDBD 21:50 → OVERFLOW 23:57 → WEST WING 09-18 01:48
PROVIDERS: ADMIT Nurse Practitioner Family; ATTEND Internal Medicine
DX: K91.89 Other postprocedural complications and disorders of digestive system (principal); K85.80 Other acute pancreatitis without necrosis or infection; R65.10 Systemic inflammatory response syndrome (SIRS) of non-infectious origin without acute organ dysfunction; R74.01 Elevation of levels of liver transaminase levels; Z90.49 Acquired absence of other specified parts of digestive tract; Y84.8 Other medical procedures as the cause of abnormal reaction of the patient, or of later complication, without mention of misadventure at the time of the procedure; Y92.89 Other specified places as the place of occurrence of the external cause
CPT/HCPCS: 36415; 71045; 71250; 74176; 80053; 82150; 82962; 83605; 83690; 85025; 96365; 96372; 96375; C9113; G0378; J1815; J1885; J2405; J3490

== ENCOUNTER 2024-05-07 03:18 | Emergency (ER) | payer MEDICAID, OTHER ==
[~2024-05-07] VITALS: Ht 180.3 cm; Wt 107.7 kg
[2024-05-07 04:16] VITALS: BP 112/74; PULSE 74; RESP 20; TEMP 97.3; O2SAT 100
[2024-05-07 05:11] LABS: Basophils # (auto) 0 10 ^3/uL (0-0.2); Basophils % (auto) 0.3 % (0.0-2.0); Eosinophils # (auto) 0.2 10 ^3/uL (0-0.8); Eosinophils % (auto) 1.8 % (0.0-7.0); Hematocrit 40.7 % (36.0-46.0); Lymphocytes # (auto) 2.4 10 ^3/uL (0.4-5.4); Lymphocytes % (auto) 23.5 % (10.0-50.0); Mean Corpuscular Hemoglobin 30.4 pg (28.0-32.0); Mean Corpuscular Hgb Conc. 34.3 g/dL (32.0-36.0); Mean Corpuscular Volume 88.5 fL (80.0-100.0); Monocytes # (auto) 1.1 10 ^3/uL (0-1.3); Monocytes % (auto) 11.2 % (0.0-12.0); Neutrophils # (auto) 6.4 10 ^3/uL (1.6-8.6); Neutrophils % (auto) 63.2 % (37.0-80.0); Platelet Count (auto) 178 10^3/uL (140-450); Red Cell Distribution Width 14.1 % (11.8-14.3); White Blood Cell 10.1 10^3/uL (4.4-10.8)
--- NOTE | 2024-05-07 05:21 | ED.PDOC ---
Musculoskeletal HPI Comments Pt arrived in ER due to bilateral leg swelling x 2 days. Pt VSS. No distress present. No PMH. Bilateral leg swelling with +1 pitting edema. Pt states she woke up 2 days again with swelling from unknown cause. No distress present. Legs not warm or reddened. Denies numbness, weakness, fever, chills, chest pain, shortness of breath, ETOH, illicit drug use, or control use. Denies possible or urinary complaints. Chief Complaint: Lower Extremity Time Seen by MD: 03:56 Primary Care Provider: UNKNOWN Reviewed Notes: Nurses Notes, Medications, Allergies Allergies: Coded Allergies: NO KNOWN ALLERGIES (Unverified , 06/25/09) Home Meds Active Scripts Potassium Chloride (POTASSIUM CHLORIDE CR) 10 Meq Tb, 1 TAB PO DAILY for 10 Days, #10 TAB Prov:KAREN POMPA OPENER TENDER 05/07/24 Furosemide (Lasix) 20 Mg Tb, 1 TAB PO DAILY for 10 Days, #10 TAB Prov:KAREN POMPA OPENER TENDER 05/07/24 Information Source: Patient Mode of Arrival: Ambulatory Past Medical History PAST MEDICAL HISTORY: Denies Surgical History: Cholecystectomy SCIENTIFIC SOFTWARE ENGINEER History: No Pertinent SCIENTIFIC SOFTWARE ENGINEER History Family History Family History: Reviewed,noncontributory to illness Social History Smoker: Non-Smoker Alcohol: Occasionally Drugs: Denies Drug Use Lives In: Home Constitutional: denies: chills, diaphoresis, fatigue, fever, malaise, sweats, weakness, others EENTM: denies: blurred vision, double vision, ear bleeding, ear discharge, ear drainage, ear pain, ear ringing, eye pain, eye redness, hearing loss, mouth pain, mouth swelling, nasal discharge, nose bleeding, nose congestion, nose pain, photophobia, tearing, throat pain, throat swelling, voice changes, others Respiratory: denies: cough, hemoptysis, orthopnea, SOB at rest, shortness of breath, SOB with excertion, stridor, wheezing, others Cardiovascular: reports: edema (Bilateral lower extremity); denies: chest pain, dizzy spells, diaphoresis, Dyspnea on exertion, irregular heart beat, left arm pain, lightheadedness, palpitations, PND, syncope, others Gastrointestinal: denies: abdomen distended, abdominal pain, blood streaked bowels, constipated, diarrhea, dysphagia, difficulty swallowing, hematemesis, melena, nausea, poor appetite, poor fluid intake, rectal bleeding, rectal pain, vomiting, others Genitourinary: denies: abnormal vagina bleeding, burning, dyspareunia, dysuria, flank pain, frequency, hematuria, incontinence, pain, , vagina discharge, urgency, others Neurological: denies: dizziness, fainting, headache, left sided numbness, left sided weakness, numbness, paresthesia, pre-existing deficit, right sided numbness, right sided weakness, seizure, speech problems, tingling, tremors, weakness, others Musculoskeletal: denies: back pain, gout, joint pain, joint swelling, muscle pain, muscle stiffness, neck pain, others Integumetry: denies: bruises, change in color, change in hair/nails, dryness, laceration, lesions, lumps, rash, wounds, others Hematologic/Lymphatic: denies: anemia, blood clots, easy bleeding, easy bruising, swollen glands, others Endocrine: denies: excessive hunger, excessive sweating, excessive thirst, excessive urination, flushing, intolerance to cold, intolerance to heat, unexplained weight gain, unexplained weight loss, others Psychiatric: denies: anxiety, bipolar disorder, depression, hopeless, panic disorder, schizophrenia, sleepless, suicidal, others Physical Exam General Appearance: No Apparent Distress, Normal HEENT: Pharynx Normal Neck: Full Range of Motion, Non-Tender Respiratory: Lungs Clear, No Respiratory Distress, Normal Breath Sounds Cardiovascular: No Edema, No JVD, No Murmur, No Gallop, Normal Peripheral Pulses, Regular Rate/Rhythm Breast Exam: Deferred Gastrointestinal: No Organomegaly, Non Tender, No Pulsatile Mass, Normal Bowel Sounds, Soft Genitalia: Deferred Pelvic: Deferred Rectal: Deferred Extremities: No calf tenderness, Normal capillary refill, Normal inspection, Normal range of motion, Non-tender, Pedal edema (Bilateral +1 pitting edema ankles a quarter way up calves. No noted erythema or warmth. Abrasions, lesions, or ecchymosis. Positive pedal pulses) Musculoskeletal : Apperance: Normal Neurologic: Alert, airplane cabin attendant II-XII nml as Tested, No Motor Deficits, Normal Affect, Normal Mood, No Sensory Deficits Cerebellar Function: Normal Reflexes: Normal Skin: Dry, Normal Color, Warm Lymphatic: No Adenopathy Was a procedure done? Was a procedure done?: No Differential Diagnosis EXT Differential Diagnosis: Cellulitis, Deep Vein Thrombosis X-Ray, Labs, Meds, VS Vital Signs Date Time Temp Pulse Resp B/P (MAP) Pulse Ox O2 Delivery O2 Flow Rate FiO2 05/07/24 04:16 97.3 74 20 112/74 (87) 100 97.3 05/07/24 04:16 74 20 100 Room Air 05/07/24 03:20 97.3 74 20 112/74 (87) 100 Lab Test 05/07/24 04:48 Range/Units White Blood Count 10.1 4.4-10.8 10^3/uL Red Blood Count 4.60 4.0-5.20 10^6/uL Hemoglobin 14.0 12.2-16.2 g/dL Hematocrit 40.7 36.0-46.0 % Mean Corpuscular Volume 88.5 80.0-100.0 fL Mean Corpuscular Hemoglobin 30.4 28.0-32.0 pg Mean Corpuscular Hemoglobin Concent 34.3 32.0-36.0 g/dL Red Cell Distribution Width 14.1 11.8-14.3 % Platelet Count 178 140-450 10^3/uL Mean Platelet Volume 9.7 6.9-10.8 fL Neutrophils (%) (Auto) 63.2 37.0-80.0 % Lymphocytes (%) (Auto) 23.5 10.0-50.0 % Monocytes (%) (Auto) 11.2 0.0-12.0 % Eosinophils (%) (Auto) 1.8 0.0-7.0 % Basophils (%) (Auto) 0.3 0.0-2.0 % Neutrophils # (Auto) 6.4 1.6-8.6 10 ^3/uL Lymphocytes # (Auto) 2.4 0.4-5.4 10 ^3/uL Monocytes # (Auto) 1.1 0-1.3 10 ^3/uL Eosinophils # (Auto) 0.2 0-0.8 10 ^3/uL Basophils # (Auto) 0 0-0.2 10 ^3/uL Nucleated Red Blood Cells 0.0 % Sodium Level 139 136-145 mmol/L Potassium Level 3.6 3.5-5.1 mmol/L Chloride Level 107 98-107 mmol/L Carbon Dioxide Level 28 20-31 mmol/L Anion Gap 4 L 5-15 Blood Urea Nitrogen 10 9-23 mg/dL Creatinine 0.71 0.550-1.02 mg/dL Glomerular Filtration Rate Calc 119 >90 mL/min BUN/Creatinine Ratio 14.1 10.0-20.0 Serum Glucose 96 74-106 mg/dL Calcium Level 9.4 8.7-10.4 mg/dL Magnesium Level 2.1 1.6-2.6 mg/dL Total Bilirubin 0.6 0.2-1.0 mg/dL Aspartate Amino Transferase (AST) 10 L 13-40 U/L Alanine Aminotransferase (ALT) 14 7-40 U/L Alkaline Phosphatase 68 46-116 U/L B-Type Natriuretic Peptide 12.10 0-100 pg/mL Total Protein 6.5 5.7-8.2 g/dL Albumin 4.3 3.2-4.8 g/dL X-Ray, Labs, Meds, VS Comment CBC, CMP, magnesium, BNP all within normal limits Secondary to diet and patient's current working condition standing for long periods of time. Trial Lasix 20 mg once daily times 10 days along with potassium 10 mEq daily times 10 days. Advised to purchase compression stockings. Advised to elevate her lower extremities throughout the day. Advised on her diet avoid excessive sodium intake. Advised to follow up with PCP in 2-3 days as necessary if symptoms do not improve consider further blood work. ER return precautions given patient indicates understanding and agrees with discharge plan of care. Time of 1ST Reevaluation: 05:58 Reevaluation 1ST: Improved Patient Education/Counseling: Diagnosis, Treatment, Prognosis, Need For Follow Up Family Education/Counseling: No Family Present Departure 1 Departure Time of Disposition: 05:57 Impression: Primary Impression: Bilateral lower extremity edema Disposition: 01 HOME / SELF CARE / HOMELESS Condition: Stable e-Prescriptions Potassium Chloride (POTASSIUM CHLORIDE CR) 10 Meq Tb 1 TAB PO DAILY for 10 Days, #10 TAB Prov: KAREN POMPA 05/07/24 Furosemide (Lasix) 20 Mg Tb 1 TAB PO DAILY for 10 Days, #10 TAB Prov: KAREN POMPA 05/07/24 Discharged With: Self Critical Care Note Critical Care Time?: No Stability Stability form required: No KAREN POMPA May 07, 2024 05:21
[2024-05-07 05:28] LABS: Alanine Aminotransferase 14 U/L (7-40); Albumin 4.3 g/dL (3.2-4.8); Alkaline Phosphatase 68 U/L (46-116); Anion Gap 4 (5-15); Aspartate Aminotransferase 10 U/L (13-40); BUN/Creatinine Ratio 14.1 (10.0-20.0); Blood Urea Nitrogen 10 mg/dL (9-23); Calcium 9.4 mg/dL (8.7-10.4); Carbon Dioxide 28 mmol/L (20-31); Chloride 107 mmol/L (98-107); Glucose 96 mg/dL (74-106); Magnesium 2.1 mg/dL (1.6-2.6); Potassium 3.6 mmol/L (3.5-5.1); Sodium 139 mmol/L (136-145)
[2024-05-07 05:29] LABS: Bilirubin, Total 0.6 mg/dL (0.2-1.0); Total Protein 6.5 g/dL (5.7-8.2)
[2024-05-07] MEDS ORDERED: FURO1TAB33 PO (05:53)
[2024-05-07] MEDS ORDERED: POTA-36 PO (05:53)
== END 2024-05-07 06:08 | disposition home or self-care (01) ==
LOC: ER 03:18
DX: R60.0 Localized edema (principal); Z79.899 Other long term (current) drug therapy
CPT/HCPCS: 36415; 80053; 83735; 83880; 85025